=== PATIENT | female | born 1960 | race Caucasian/White ===

== ENCOUNTER 2019-10-04 19:25 | Emergency (ER) | payer MEDICAID ==
[~2019-10-04] VITALS: Ht 167.6 cm; Wt 59.0 kg
--- NOTE | 2019-10-04 19:33 | NUR ---
[id number] & [employer].SUICIDAL ATTEMPT BY CUTTING BOTH WRIST. BILAT WRIST LACERATION BY RAZOR BLADE, PT AWAKE, ALERT, PT TO BED 12, SI PRECAUTIONS STARTED, SITTER BY BEDSIDE, PT APPEARS CALM AND COOPERATIVE, [place] N MONITOR, VSS, NAD NOTED, PENDING MD CORDERO
[2019-10-04] MEDS ORDERED: LIDOCAINE HCL/MPF 1% 30 ML VIAL IJ ONE (19:55)
[2019-10-04] MEDS ORDERED: TDAP [DIPH/PERTUSSIS/TET] 0.5 ML VIAL IM ONE (20:00)
[2019-10-04 20:25] LABS: BASOPHILS % (AUTO) 0.5 % (0.0-2.0); EOSINOPHILS % (AUTO) 0.7 % (0.0-6.0); HEMATOCRIT 43 % (33-45); HEMOGLOBIN 14.4 g/dL (11.5-14.8); LYMPHOCYTES # (AUTO) 1.3 /CMM (0.8-4.8); LYMPHOCYTES % (AUTO) 15.3 % (20.0-44.0); MEAN CORPUSCULAR HGB CONC 34 g/dl (31.0-36.0); MEAN CORPUSCULAR VOLUME 90 fL (82-100); MONOCYTES # (AUTO) 0.8 /CMM (0.1-1.30); NEUTROPHILS # (AUTO) 6.4 /CMM (1.8-8.9); NEUTROPHILS % (AUTO) 74.5 % (43.0-81.0); PLATELET COUNT (AUTO) 309 /CMM (150-450); RED BLOOD CELL COUNT(AUTO) 4.79 MIL/uL (4.0-5.2); WHITE BLOOD COUNT (AUTO) 8.6 K/uL (4.3-11.0)
[2019-10-04 20:32] LABS: CALCIUM, SERUM 9.1 mg/dL (8.5-10.1); CARBON DIOXIDE 24 mmol/L (21-32); CHLORIDE 104 mmol/L (98-107); CREATININE 0.7 mg/dL (0.6-1.3); GLUCOSE 90 mg/dL (74-106); POTASSIUM 3.7 mmol/L (3.5-5.1); SODIUM SERUM 140 mmol/L (136-145); UREA NITROGEN, BLOOD 10 mg/dL (7-18)
[2019-10-04 20:38] LABS: ALANINE AMINOTRANSFERASE 7 U/L (12-78); ALBUMIN 3.8 g/dL (3.4-5.0); ALCOHOL, BLOOD < 3 mg/dL (0-0); ALKALINE PHOSPHATASE 76 U/L (46-116); ASPARTATE AMINOTRANSFERASE 13 U/L (15-37); BILIRUBIN,DIRECT 0.1 mg/dL (0.0-0.2); BILIRUBIN,TOTAL 0.7 mg/dL (0.2-1.0); TOTAL PROTEIN, SERUM 6.8 g/dL (6.4-8.2)
[2019-10-04 20:41] LABS: ACETAMINOPHEN 0 ug/ml (10-30); SALICYLATE 1.2 mg/dL (2.8-20.0)
[2019-10-04] MEDS ORDERED: TIMOLOL MAL/DORZOLAM HCL OPHTH 10 ML BOTTLE EACHEYE STA (21:20)
[2019-10-04] MEDS ORDERED: LATANOPROST EYE DROP 0.005% 2.5 ML BOTTLE EACHEYE STA (21:20)
[2019-10-04 21:48] LABS: APPEARANCE,URINE Clear (CLEAR); BACTERIA,URINE None seen /HPF (None Seen); BILIRUBIN,URINE MODERATE (NEGATIVE); BLOOD, URINE Small Ery/uL (NEGATIVE); COLOR,URINE Yellow (YELLOW); KETONES,URINE 40 (NEGATIVE); LEUKOCYTE ESTERASE ,URINE Negative (NEGATIVE); NITRITE, URINE Negative (NEGATIVE); PH,URINE 5.5 (5.0-8.0); PROTEIN,URINE Trace mg/dl (NEGATIVE); SQUAMOUS EPITHELIAL CELL,UR Few /HPF (None Seen); UGLUCOSE Negative (NEGATIVE); WBC,URINE 0-2 /HPF (0-3)
--- NOTE | 2019-10-04 21:55 | NUR ---
LEFT MESSAGE FOR BASKETBALL REFEREE
[2019-10-04] MEDS ORDERED: LATANOPROST EYE DROP 0.005% 2.5 ML BOTTLE ONE (23:06)
[2019-10-04] MEDS ORDERED: TIMOLOL 0.5% SOLN OPHTH 5 ML BOTTLE ONE (23:07)
--- NOTE | 2019-10-05 00:03 | NUR ---
CALLED TEETEE ALLRED FOR EVALAUTION. LEFT MESSAGE. WILL FOLLOW UP
[2019-10-05] MEDS ORDERED: TDAP [DIPH/PERTUSSIS/TET] 0.5 ML VIAL IM ONE (00:12)
--- NOTE | 2019-10-05 02:28 | NUR ---
Patient is resting comfortably in bed with eyes closed. Easily aroused. VSS
--- NOTE | 2019-10-05 03:20 | NUR ---
MIGUEL ANGEL ALLRED AT BEDSIDE FOR EVALUATION
--- NOTE | 2019-10-05 03:20 | NUR ---
PT C/O DRY EYES AND REQUESTING LUBRICATING EYE DROPS. ER MD AWARE
[2019-10-05] MEDS ORDERED: POLYVINYL ALCOHOL 15 ML BOTTLE ONE (03:22)
--- NOTE | 2019-10-05 04:05 | NUR ---
Patient is resting comfortably in bed with eyes closed. Easily aroused. VSS
--- NOTE | 2019-10-05 04:05 | NUR ---
SITTER AT BEDSIDE, ON CONSTANT OBSERVATION FOR SAFETY.
--- NOTE | 2019-10-05 04:10 | NUR ---
Clyde tinoco in [facility] - 10/05/19 at 0700 by ROSIE CLINICAL INFORMATION FAXED TO [facility] INTAKE
--- NOTE | 2019-10-05 04:27 | NUR ---
PER TEETEE ALLRED PT WILLING TO GO VOLUNTARY TO PSYCH FACILITY. UNABLE TO FIND PLACEMENT FOR PATIENT AT THIS TIME. NO INSURANCE ON FILE. [facility] CURRENTLY DOWN, UNABLE TO APPLY PATIENT FOR PRESUMPTIVE [facility]. WILL FOLLOW UP. ER AWARE.
--- NOTE | 2019-10-05 04:27 | NUR ---
Note alejandrina in ED - 10/05/19 at 0429 by ROSIE UNABLE TO FIND PLACEMENT FOR PATIENT. NO INSURANCE ON FILE. [facility] CURRENTLY DOWN, UNABLE TO APPLY PATIENT FOR PRESUMPTIVE [facility]. WILL FOLLOW UP.
--- NOTE | 2019-10-05 04:45 | NUR ---
[facility] INTAKE REC'D CLINICAL INFORMATION. REQUESTING TO FAX UPDATED FACE SHEET WITH PT'S INSURANCE
[2019-10-05 04:48] VITALS: BP 126/79
[2019-10-05] MEDS ORDERED: POLYVINYL ALCOHOL 15 ML BOTTLE OP ONE (05:00)
--- NOTE | 2019-10-05 05:15 | NUR ---
[facility] STILL DOWN, UNABLE TO APPLY PT FOR PRESUMPTIVE [facility]
--- NOTE | 2019-10-05 06:36 | NUR ---
PER ADMITTING DEPARTMENT, [facility] STILL DOWN
--- NOTE | 2019-10-05 06:36 | NUR ---
INFORMED [facility] INTAKE [facility] IS STILL DOWN. WILL FAX UPDATED COVER SHEET ONCE READY
--- NOTE | 2019-10-05 09:33 | NUR ---
CALLED [facility] FOR TRANSPORT TO [facility]. PLACED AMBULANCE ON WILL CALL.
--- NOTE | 2019-10-05 16:16 | NUR ---
SPOKE TO RAJIV FROM [facility] FARHANA ORDAZ. PT IS ACCEPTED. NUMBER FOR REPORT [phone]. [facility] IS THE NURSING SUP.
--- NOTE | 2019-10-05 16:18 | NUR ---
CALLED [facility]EN [id number].
--- NOTE | 2019-10-05 16:20 | NUR ---
DR. BATEMAN. DR. RICHARDSON ARE THE ACCEPTING DOCTORS.
--- NOTE | 2019-10-05 17:37 | NUR ---
report given to tavo escobar at [facility] vn
--- NOTE | 2019-10-05 19:10 | NUR ---
pt transported to [facility] via private ambulance --[facility], report given to ambualnce staff. all paperwork given, left in stable condition, all belongings with [facility]nce.
== END 2019-10-05 19:13 ==
LOC: ER 19:38
DX: S61.512A Laceration without foreign body of left wrist, initial encounter (principal); S61.511A Laceration without foreign body of right wrist, initial encounter; R45.851 Suicidal ideations; Z04.6 Encounter for general psychiatric examination, requested by authority; Z60.2 Problems related to living alone; Z86.69 Personal history of other diseases of the nervous system and sense organs; X78.8XXA Intentional self-harm by other sharp object, initial encounter; Y93.89 Activity, other specified; Y92.89 Other specified places as the place of occurrence of the external cause; Y99.8 Other external cause status
CPT/HCPCS: 12002; 36415; 80048; 80076; 80305; 80307; 80329; 81001; 85025; 90471; 90715; 93005; 99285; A6403; G0480; J3490; 81000-TC

== ENCOUNTER 2019-10-20 11:09 | Emergency (ER) | payer MEDICAID ==
[~2019-10-20] VITALS: Ht 167.6 cm; Wt 61.2 kg
[2019-10-20 11:15] VITALS: BP 122/75
--- NOTE | 2019-10-20 11:40 | NUR ---
SUTURE REMOVAL DONE. Patient discharged to home in stable condition. Written and verbal after care instructions given. Patient verbalizes understanding of instruction.
== END 2019-10-20 11:41 | disposition home or self-care (01) ==
LOC: ER 11:12
DX: S61.512D Laceration without foreign body of left wrist, subsequent encounter (principal); Z60.2 Problems related to living alone; X58.XXXD Exposure to other specified factors, subsequent encounter

== ENCOUNTER 2020-02-09 21:00 | Emergency (ER) | payer MEDICAID, OTHER ==
[~2020-02-09] VITALS: Ht 167.6 cm; Wt 59.9 kg
[2020-02-09 21:28] VITALS: BP 129/84
--- NOTE | 2020-02-09 22:14 | NUR ---
Patient discharged to home in stable condition. Written and verbal after care instructions given. Patient verbalizes understanding of instruction. Pt ambulatory with a steady gait
== END 2020-02-09 22:15 | disposition home or self-care (01) ==
LOC: ER 21:04
DX: J32.0 Chronic maxillary sinusitis (principal); H93.11 Tinnitus, right ear; R51 Headache; Z98.890 Other specified postprocedural states; Z60.2 Problems related to living alone

== ENCOUNTER 2020-02-13 15:45 | Emergency (ER) | payer OTHER ==
[~2020-02-13] VITALS: Ht 167.6 cm; Wt 61.2 kg
[2020-02-13 15:54] VITALS: BP 121/92
--- NOTE | 2020-02-13 16:46 | NUR ---
Patient discharged to home in stable condition. Written and verbal after care instructions given. Patient verbalizes understanding of instruction.
== END 2020-02-13 16:46 | disposition home or self-care (01) ==
LOC: ER 15:51
DX: J32.9 Chronic sinusitis, unspecified (principal); Z98.890 Other specified postprocedural states; Z60.2 Problems related to living alone

== ENCOUNTER 2020-02-16 13:46 | Emergency (ER) | payer OTHER ==
[~2020-02-16] VITALS: Ht 167.6 cm; Wt 61.2 kg
[2020-02-16 13:46] VITALS: BP 124/64
--- NOTE | 2020-02-16 14:35 | NUR ---
AT BEDSIDE FOR EVAL.
--- NOTE | 2020-02-16 15:05 | NUR ---
Patient discharged to home in stable condition. Written and verbal after care instructions given. Patient verbalizes understanding of instruction.
== END 2020-02-16 15:06 | disposition home or self-care (01) ==
LOC: ER 13:50
DX: H93.11 Tinnitus, right ear (principal); F41.9 Anxiety disorder, unspecified; Z98.890 Other specified postprocedural states; Z60.2 Problems related to living alone